=== PATIENT | female | born 1950 | race Caucasian/White ===

== ENCOUNTER → 2017-12-27 | Outpatient (CLI) | payer OTHER, MEDICARE ==
[~2017-12-27] MED LIST: ACYCLOVIR400 MG PO; ALBUTEROL SULFAT2 MG PO; ASPIR 8181 MG PO; ATORVASTATIN CA20 MG PO; CENTRUM SILVER1 EAC3 PO; CLARITIN-D 241 EACH PO; CRANBERRY475 MG PO; FIBER PO; FIBER500 MG PO; FLONASE16 GM NS; HUMALOG100 UNITS/ SQ; HYDROCHLOROTHIA25 MG PO; LANTUS100 UNITS/ SQ; LEVAQUIN250 MG PO; LEVEMIR100 UNIT/1 SQ; LOSARTAN POTASS50 MG PO; MELATONIN5 M2 PO; METFORMIN HCL1000 MG PO; METOPROLOL SUCC25 MG PO; NAPROXEN250 MG PO; OMEGA 3 FISH O1 EACH PO; TYLENOL WITH C1 EACH PO; VITAMIN B12-FO1 EACH PO; VITAMIN C500 M1 PO; VITAMIN D32000 UNI1 PO; VITAMIN E400 UNI1 PO; ZYRTEC10 MG PO
--- NOTE | 2017-12-27 09:41 | Diagnostic Imaging Report ---
PROCEDURE:US RETROPERITONEAL ( KIDNEY ). COMPARISON:Patients [facility], , US RETROPERITONEAL ( KIDNEY )., 06/07/2017, 15:15. INDICATIONS:Neoplasm of unspecified certainty. Followup nephrectomy. TECHNIQUE: Marquez scale color Doppler ultrasound kidneys FINDINGS: Right: 13.5 x 5.8 x 6.9 cm. Cortical thickness 1.8 cm. Normal kidney. Left: Nephrectomy with unremarkable renal fossa. Normal urinary bladder with patent left ureter. CONCLUSION: Normal right kidney and left nephrectomy bed. Dictated by: Naveed Felix M.D. on 12/27/2017 at 9:43 Electronically approved by: Naveed Felix M.D. on 12/27/2017 at 9:43
== END ==
LOC: US 07:33
PROVIDERS: ATTEND Urology
CPT/HCPCS: 76770

== ENCOUNTER → 2018-10-03 | Outpatient (CLI) | payer OTHER, MEDICARE ==
--- NOTE | 2018-10-03 10:04 | Diagnostic Imaging Report ---
EXAMINATION: Renal ultrasound. CLINICAL HISTORY :Abdominal pain COMPARISON: 04/18/2018 TECHNIQUE: Grayscale and color Doppler evaluation of the kidneys and bladder was performed in transverse and longitudinal planes. DISCUSSION: RIGHT KIDNEY: The right kidney measures 13 cm in length and shows normal echogenicity. No hydronephrosis, shadowing calculi or solid mass lesions. LEFT KIDNEY: Status post left nephrectomy 2016. No abnormal soft tissue in the left renal fossa. BLADDER: Unremarkable. Right ureteral jet is identified. IMPRESSION: Status post left nephrectomy with unremarkable left renal fossa. Normal appearing right kidney. Signed by: Dr. Eric Fried M.D. on 10/03/2018 10:00 AM
--- NOTE | 2018-10-03 10:10 | Diagnostic Imaging Report ---
EXAM: US ABDOMEN COMPLETE DATE: 10/03/2018 7:51 AM INDICATION: Abdominal pain, COMPARISON: Renal ultrasound same day TECHNIQUE: Transverse and longitudinal umanzor scale and color doppler sonographic images of the upper abdomen were obtained. FINDINGS: LIVER 17.9 cm in the right midclavicular line. Increased echogenicity, normal contour, no masses. SPLEEN 11 cm in maximum diameter. Normal echogenicity, no masses. GALLBLADDER Multiple small shadowing calculi and echogenic sludge are identified within the gallbladder. No wall thickening or pericholecystic fluid. Negative sonographic Gaitan's sign. BILE DUCTS No intra nor extra-hepatic biliary dilation. Common bile duct measures 0.3 cm PANCREAS: Visualized portions are normal. RIGHT KIDNEY: 13 cm Echogenicity: Normal Collecting System: No hydronephrosis Stones: None Cyst/Mass: None LEFT KIDNEY: Absent. VESSELS: Aorta: Nonaneurysmal Inferior Vena Cava: Patent Main Portal Vein: 1.0 cm, normal size with hepatopetal flow. FREE FLUID: None IMPRESSION: Hepatic steatosis. Cholelithiasis and gallbladder sludge without sonographic evidence of acute cholecystitis. Status post left nephrectomy. Signed by: Dr. Eric Fried M.D. on 10/03/2018 10:07 AM
== END ==
LOC: US 07:38
PROVIDERS: ATTEND Internal Medicine Gastroenterology
DX: N28.1 Cyst of kidney, acquired (principal); R10.9 Unspecified abdominal pain
CPT/HCPCS: 76700; 76770

== ENCOUNTER → 2018-10-21 | Day surgery (SDC) | payer OTHER, MEDICARE ==
[2018-10-18 11:36] LABS: BASOPHILS % 0.6 % (0.0-1.0); EOSINOPHILS # (AUTO) 0.3 (0.0-0.4); EOSINOPHILS % 3.9 % (0.0-6.0); HEMATOCRIT 40.9 % (34.2-44.1); LYMPHOCYTES # (AUTO) 1.9 (1.0-3.2); LYMPHOCYTES % 28.3 % (18.0-39.1); MEAN CORPUSCULAR HGB CONC 31.8 g/dL (31-35); MEAN CORPUSCULAR VOLUME 91.1 fL (81-99); MONOCYTES # (AUTO) 0.5 (0.2-0.8); MONOCYTES % 6.9 % (4.4-11.3); NEUTROPHILS % 59.8 % (38.7-80.0); PLATELET COUNT 156 x10e3/uL (140-360); RED BLOOD COUNT 4.49 x10e6/uL (3.6-5.1); RED CELL DISTRIBUTION WIDTH 14.7 % (11.7-14.4)
[~2018-10-21] MED LIST changes: +ACETAMINOPHEN PO; +ACYCLOVIR200 MG PO; +ALLEGRA ALLERG180 MG PO; +ANASTROZOLE1 MG PO; +AZELASTINE137 MCG/0.; +BASAGLAR SC; +CLONIDINE HCL0.2 MG PO; +DEXTROSE 5% 250ML 250 ML IV ONE; +EPHEDRINE SULFATE INJ 50 MG/10 ML SYR ONE; +FENTANYL CITRATE/PF 100MCG/2 ML INJ ONE; +FUROSEMIDE40 MG PO; +HYOSCYAMINE SULFATE 0.5 MG/ML INJ ONE; +LOSARTAN POTAS100 MG PO; +METOPROLOL SUCC50 MG PO; +MIDAZOLAM HCL 2 MG/2 ML VIAL ONE; +MIDAZOLAM HCL 5 MG/ML VIAL ONE; +MONTELUKAST SOD10 MG PO; +PROBIOTIC & AC1 EACH PO; +PROPOFOL IV EMULSION 10 MG/ML 50 ML VIAL ONE; +TRULICITY SC
--- NOTE | 2018-10-21 18:21 | Operative Report ---
DATE OF PROCEDURE: 10/21/2018 SURGEON: Josh Beavers MD PROCEDURES: EGD with biopsies and colonoscopy with polypectomy and biopsies. INDICATIONS FOR EGD: Dyspepsia. INDICATIONS FOR COLONOSCOPY: Surveillance colonoscopy, personal history of colon polyps. MEDICATIONS: The patient was done under MAC, please see anesthesiologist's note. PROCEDURE IN DETAIL: With the patient in the left lateral decubitus position, a flexible fiberoptic Olympus gastroscope was introduced into the esophagus under direct visualization without any difficulty. There was a minute nodule noted in the cervical esophagus that was removed per cold biopsy forceps. Mucosa overlying the distal esophagus revealed some patchy areas of erythema. GE junction was nodular and it was biopsied. The scope was then advanced with ease into the stomach traversing a small sliding hiatal hernia. Mucosa overlying the antrum and the body revealed some patchy erythema, low-grade to moderate edema, and biopsies were obtained and sent to stain for H pylori. Pylorus was of normal contour and shape. It was intubated with ease and the scope was advanced all the way to the second portion of the duodenum. Some erosions were noted in the proximal second portion. Biopsies were obtained from the proximal second portion as well as the duodenal bulb to rule out sprue. The scope was then withdrawn back into the stomach and retroflexed. Mucosa overlying the fundus and the cardia appeared to be within normal limits. The scope was then straightened out. The stomach was decompressed and the scope was subsequently withdrawn. The patient tolerated the procedure well. IMPRESSION: 1. Minute nodule in the cervical esophagus removed per cold biopsy forceps. 2. Distal esophagitis, mild. 3. GE junction, nodular, biopsies obtained. 4. Small sliding hiatal hernia. 5. Gastritis, biopsied. Biopsies sent to stain for Helicobacter pylori. 6. Rule out sprue. 7. Duodenitis, erosive. PLAN: Follow up histology. Initiate Protonix 40 mg one p.o. q.a.m. a.c. The patient was then turned around and after adequate lubrication of the anal canal, a flexible fiberoptic Olympus colonoscope was inserted into the rectum with ease and advanced all the way to the cecum. It was then withdrawn slowly. Mucosa overlying the cecum, ascending colon, transverse colon grossly appeared to be within normal limits. Diverticular disease was noted to involve the distal descending and the sigmoid colon. One polyp was hot biopsied from the proximal sigmoid. Approximately 8 mm submucosal lesion was noted in the distal sigmoid colon ? lipoma. Biopsies were obtained. A minute polyp was hot biopsied from the proximal rectum. The scope was then retroflexed into the distal rectum and moderate-sized internal hemorrhoids were noted, none of which was actively bleeding. The scope was then straightened out, it was subsequently withdrawn. The patient tolerated the procedure well. IMPRESSION: 1. Diverticulosis. 2. Sigmoid colon and polyp, hot biopsied. 3. Approximately 8 mm submucosal lesion ? lipoma distal sigmoid, biopsied. 4. Rectal polyp, minute, hot biopsied. 5. Internal hemorrhoids, none actively bleeding. PLAN: Follow up histology. Initiate high-fiber, low-fat diet. Initiate high-fiber supplement. The patient might benefit from a followup colonoscopy in 3-5 years. MD CAROLANN Ibrahim/SAPNA /[id number] cc: Ye Donnelly MD
--- OUTSIDE RECORDS SUMMARY | 2018-10-23 11:56 | XMS REPORT | Clinical Summary ---
Author Author [facility] Organization [facility] Address Unknown Phone Unavailable Care Team Providers Care Aerospace Assembler Name Role Phone Ye Donnelly MD PCP Allergies Comments Active Allergy Reactions Severity Noted Date Hallucinations,gi,hives Pentazocine Lactate Other (See 03/29/2018 Comments) Medications End Date Status Medication Sig Dispensed Refills Start Date Active albuterol (PROVENTIL) 4 4 mg 2 (two) 0 01/02/201 MG tablet times a day. 8 Active amLODIPine (NORVASC) 10 10 mg daily. 0 01/13/ mg tablet 8 Active atorvastatin (LIPITOR) 20 Take 20 mg by 0 01/17/ MG tablet mouth 8 nightly. Active azelastine (ASTELIN) 137 1 spray into 0 mcg (0.1 %) nasal spray each nostril 8 2 (two) times a day. Active TRULICITY 1.5 mg/0.5 mL Inject under 0 pen injector the skin once 8 a week. Active furosemide (LASIX) 40 mg Take 40 mg by 0 tablet mouth daily. 8 Active BASAGLAR KWIKPEN U-100 50 Units 2 0 INSULIN 100 unit/mL (3 (two) times a 8 mL) injection (pen) day. Active losartan (COZAAR) 100 MG Take 100 mg 0 tablet by mouth 8 nightly. Active metoprolol tartrate Take 50 mg by 0 (LOPRESSOR) 50 mg tablet mouth 2 (two) 8 times a day. Active montelukast (SINGULAIR) Take 10 mg by 0 10 mg tablet mouth 8 nightly. Active cetirizine (ZyrTEC) 10 MG Take 10 mg by 0 tablet mouth nightly. Active ascorbic acid, vitamin C, Take 500 mg 0 (VITAMIN C) 500 MG tablet by mouth daily. Active vit B complex Take by 0 no.12/niacin,B3, (VITAMIN mouth. B COMPLEX NO.12-NIACIN ORAL) Active omega-3 acid ethyl esters Take 1 g by 0 (LOVAZA) 1 gram capsule mouth 2 (two) times a day. Active wtjl-kqe-wcy-kjj-dkoo-ywl Take 500 mg 0 p-pec (FIBER 6) 1,000 mg by mouth 2 tablet (two) times a day. Active Saccharomyces boulardii Take 250 mg 0 (FLORASTOR) 250 mg by mouth 2 capsule (two) times a day. Active acetaminophen (TYLENOL) Take 1,000 mg 0 500 MG tablet by mouth every 6 (six) hours as needed for mild pain. Active fexofenadine (CHANTELLE) Take 180 mg 0 180 MG tablet by mouth daily. Active acyclovir (ZOVIRAX) 400 Take 400 mg 0 MG tablet by mouth 2 (two) times a day. 04/05/2018 Discontinued aspirin (ECOTRIN) 81 MG Take 81 mg by 0 enteric coated tablet mouth daily. Active Problems Not on file Encounters Care Team Description Date Type Specialty Tal Goodman MD 04/05/2018 Anesthesia General Surgery Event Laura Huang MD RIGHT NEEDLE LOCALIZED BEAST LUMPECTOMY WITH ONCOPLASTIC CLOSURE, MULTIPLE INTERCOASTAL BLOCKS, RIGHT AXILLARY SENTINEL LYMPH NODE BIOPSY WITH INJECTION OF METHYLENE BLUE, 04/05/2018 Surgery General Surgery Laura Huang MD Preop testing 04/05/2018 Hospital General Surgery Encounter Laura Huang MD Malignant neoplasm of central portion of right female breast, unspecified estrogen receptor status 04/05/2018 Hospital Radiology Encounter Laura Huang MD Malignant neoplasm of central portion of right female breast, unspecified estrogen receptor status 04/05/2018 Hospital Radiology Encounter Laura Huang MD Preop testing (Primary Dx) 03/29/2018 Pre-Admit Pre-Admission Testing Testing Appointment Laura Huang MD 03/29/2018 Hospital Radiology Encounter Laura Huang MD Malignant neoplasm of central portion of right female breast, unspecified estrogen receptor status (Primary Dx) 03/22/2018 Transcribe Access Orders Laura Huang MD 03/17/2018 Hospital Radiology Encounter Laura Huang MD 03/17/2018 Hospital Radiology Encounter Laura Huang MD 03/17/2018 Hospital Radiology Encounter Laura Huang MD 03/17/2018 Hospital Radiology Encounter Laura Huang MD 03/17/2018 Hospital Radiology Encounter Laura Huang MD 03/17/2018 Hospital Radiology Encounter Laura Huang MD 03/17/2018 Hospital Radiology Encounter Laura Huang MD 03/17/2018 Hospital Radiology Encounter after 10/22/2017 Family History Medical History Relation Name Comments Kidney failure Brother Diabetes Father Leukemia Mother Relation Name Status Comments Brother Father Mother Social History Date Tobacco Use Types Packs/Day Years Used Never Smoker Smokeless Tobacco: Never Used Alcohol Use Drinks/Week oz/Week Comments No Sex Assigned at Date Recorded Not on file Industry Job Start Date Occupation Not on file Not on file Not on file Travel End Travel History Travel Start No recent travel history available. Last Filed Vital Signs Time Taken Vital Sign Reading 04/05/2018 3:12 PM CDT Blood Pressure 147/68 04/05/2018 3:12 PM CDT Pulse 69 04/05/2018 2:55 PM CDT Temperature 36.5 C (97.7 F) 04/05/2018 3:12 PM CDT Respiratory Rate 16 04/05/2018 3:12 PM CDT Oxygen Saturation 95% - Inhaled Oxygen - Concentration 04/05/2018 7:59 AM CDT Weight 121 kg (267 lb 2 oz) 04/05/2018 7:59 AM CDT Height 165.1 cm (5' 5") 04/05/2018 7:59 AM CDT Body Mass Index 44.45 Plan of Treatment Health Maintenance Due Date Last Done Comments COLON CANCER SCREENING 2001 SHINGLES VACCINES (#1) 2001 65+ PNEUMOCOCCAL VACCINE 2016 (1 of 2 - PCV13) PNEUMOCOCCAL 2016 POLYSACCHARIDE VACCINE AGE 65 AND OVER INFLUENZA VACCINE 03/08/2018 BREAST CANCER SCREENING 04/05/2020 04/05/2018 Procedures Comments Procedure Name Priority Date/Time Associated Diagnosis BREAST SPECIMEN Routine 04/05/2018 12:38 PM CDT SURGICAL PATHOLOGY Routine 04/05/2018 REQUEST 12:27 PM CDT OR AN ELECTIVE Routine 04/05/2018 SUPRAGLOTTIC AIRWAY 12:01 PM CDT Procedure Note - Tal Goodman MD - 04/05/2018 12:01 PM CDT Airway Performed by: TAL GOODMAN Authorized by: TAL GOODMAN Urgency: Elective Difficult Airway: No Anesthesio logist: TAL GOODMAN Preoxygena stone with 100% O2: Yes C-spine Precaution s Maintained Throughout : Yes Mask Ventilatio n: Not attempted Final Airway Type: Supraglott ic airway Final LMA: Unique LMA Size: 4 BIOPSY, BREAST, WITH 04/05/2018 C50.111 MALIGNANT NEEDLE LOCALIZATION 11:05 AM CDT NEOPLASM OF CENTRAL PORTION OF RIGHT FEMALE BREAST NM LYMPHOSCINTIGRAPHY Routine 04/05/2018 Malignant neoplasm of 9:49 AM CDT central portion of right female breast, unspecified estrogen receptor status MAMMO DIAGNOSTIC W CAD Routine 04/05/2018 RIGHT 9:08 AM CDT US BREAST LOCALIZATION Routine 04/05/2018 Malignant neoplasm of RIGHT 9:04 AM CDT central portion of right female breast, unspecified estrogen receptor status POC GLUCOSE Routine 04/05/2018 8:09 AM CDT XR CHEST 2 VW Routine 03/29/2018 Preop testing 3:37 PM CDT ZZESTIMATED GFR Routine 03/29/2018 2:50 PM CDT COMPREHENSIVE METABOLIC Routine 03/29/2018 Preop testing PANEL 2:50 PM CDT CBC HEMOGRAM Routine 03/29/2018 Preop testing 2:50 PM CDT ECG 12-LEAD Routine 03/29/2018 Preop testing 2:49 PM CDT MAMMO EXTERNAL STUDY Routine 02/28/2018 11:32 AM CDT US BREAST EXTERNAL STUDY Routine 02/28/2018 11:31 AM CDT US BREAST EXTERNAL STUDY Routine 02/21/2018 11:31 AM CDT MAMMO EXTERNAL STUDY Routine 02/21/2018 11:31 AM CDT after 10/22/2017 Results * Breast Specimen (04/05/2018 12:38 PM CDT) Narrative Performed At EXAMINATION:BREAST SPECIMEN [facility] INDICATION: 67-year-old woman with biopsy-proven right breast invasive ductal carcinoma status post needle localization prior to surgery. Intraoperative specimen radiographs were submitted for review. IMPRESSION: The localization wire and biopsy clip are within the submitted specimen. Results were discussed with Dr. Ashlee Donnelly in the OR at 12:50 PM on 04/05/[address] Delgado. [id number] Performing Organization Address City/[facility] Phone Number [facility] [address] [place] [address] * Surgical pathology request (04/05/2018 12:27 PM CDT) [facility] DEPARTMENT OF PATHOLOGY AND GENOMIC MEDICINE Surgical pathology report See link below for PDF Lab [facility] DEPARTMENT OF Report PATHOLOGY AND GENOMIC MEDICINE Result status This is Final Report for [facility] DEPARTMENT OF [id number] PATHOLOGY AND GENOMIC MEDICINE Performing Organization Address [facility] Phone Number [facility] [address] [place] [phone] PATHOLOGY AND GENOMIC MEDICINE * NM Lymphoscintigraphy (04/05/2018 9:49 AM CDT) Narrative Performed At EXAMINATION:NM LYMPHOSCINTIGRAPHY [facility] CLINICAL HISTORY:C50.111 Malignant neoplasm of central portion of right female breast, C50.111 COMPARISON:None. TECHNIQUE: The examination was discussed with the patient. Written informed consent was obtained. All elements of maximal sterile barrier technique were utilized. A formal timeout procedure was performed prior to beginning the study. 728 uCi technetium 99m filtered sulfur colloid injected intradermally about the right circumareolar breast following injection of 1% buffered lidocaine. IMPRESSION: Uncomplicated right breast sentinel node injection [id number] Procedure Note Interface, Radiology Results Incoming - 04/05/2018 9:55 AM CDT EXAMINATION: NM LYMPHOSCINTIGRAPHY CLINICAL HISTORY: C50.111 Malignant neoplasm of central portion of right female breast, C50.111 COMPARISON: None. TECHNIQUE: The examination was discussed with the patient. Written informed consent was obtained. All elements of maximal sterile barrier technique were utilized. A formal timeout procedure was performed prior to beginning the study. 728 uCi technetium 99m filtered sulfur colloid injected intradermally about the right circumareolar breast following injection of 1% buffered lidocaine. IMPRESSION: Uncomplicated right breast sentinel node injection [id number] Performing Organization Address City/State/Zipcode Phone Number [facility] [address] [place] [address] * Mammo Diagnostic w Cad Right (04/05/2018 9:08 AM CDT) Narrative Performed At ULTRASOUND GUIDED NEEDLE LOCALIZATION RIGHT BREAST WITH POST DIGITAL [facility] MAMMOGRAPHIC IMAGING: CLINICAL: 67-year-old woman with biopsy-proven right breast invasive ductal carcinoma, for which needle localization prior to surgery is planned. Comparison: Outside mammogram, ultrasound and ultrasound-guided biopsy images dated 02/28/2018-12/13/2014 PATIENT CONSENT: Informed consent was obtained from the patient after discussion of risks, benefits, and alternatives; consent placed in chart. A "time out" was performed prior to procedure. Review of outside post biopsy mammographic images demonstrates 5 mm posterior displacement of the biopsy clip to the targeted biopsy site. For this reason, needle localization prior to surgery was planned under ultrasound guidance. A needle localization using ultrasound guidance was performed for the 1.2 cm irregular hypoechoic mass at the right breast 9:00 location 8 cm from the nipple, the known cancer. This was described on the previous ultrasound reports. The skin was prepped in the usual manner. Local anesthetic was administered to the access site. The localization was approached from the lateral aspect. A 5 cm Q- localization needle was inserted into the targeted area under ultrasound guidance. Post placement digital mammographic imaging demonstrates the reinforced segment of the Q-wire to be within the targeted abnormality and the biopsy clip noted approximately 5 mm posterior to the localization wire and abnormality. RightCC and LM views with annotations were sent with the patient to the operating room without any immediate complications. IMPRESSION: NEEDLE LOCALIZATION Needle localization for the 1.2 cm mass, the known cancer, at the right breast 9:00 location 8 cm from the nipple was successful with no apparent post procedure complications. Surgery is scheduled to follow on the same day. Performing Organization Address City/State/Zipcode Phone Number [facility] [address] [place] [address] * US Breast Localization Right (04/05/2018 9:04 AM CDT) Narrative Performed At ULTRASOUND GUIDED NEEDLE LOCALIZATION RIGHT BREAST WITH POST DIGITAL [facility] MAMMOGRAPHIC IMAGING: CLINICAL: 67-year-old woman with biopsy-proven right breast invasive ductal carcinoma, for which needle localization prior to surgery is planned. Comparison: Outside mammogram, ultrasound and ultrasound-guided biopsy images dated 02/28/2018-12/13/2014 PATIENT CONSENT: Informed consent was obtained from the patient after discussion of risks, benefits, and alternatives; consent placed in chart. A "time out" was performed prior to procedure. Review of outside post biopsy mammographic images demonstrates 5 mm posterior displacement of the biopsy clip to the targeted biopsy site. For this reason, needle localization prior to surgery was planned under ultrasound guidance. A needle localization using ultrasound guidance was performed for the 1.2 cm irregular hypoechoic mass at the right breast 9:00 location 8 cm from the nipple, the known cancer. This was described on the previous ultrasound reports. The skin was prepped in the usual manner. Local anesthetic was administered to the access site. The localization was approached from the lateral aspect. A 5 cm Q- localization needle was inserted into the targeted area under ultrasound guidance. Post placement digital mammographic imaging demonstrates the reinforced segment of the Q-wire to be within the targeted abnormality and the biopsy clip noted approximately 5 mm posterior to the localization wire and abnormality. RightCC and LM views with annotations were sent with the patient to the operating room without any immediate complications. IMPRESSION: NEEDLE LOCALIZATION Needle localization for the 1.2 cm mass, the known cancer, at the right breast 9:00 location 8 cm from the nipple was successful with no apparent post procedure complications. Surgery is scheduled to follow on the same day. Procedure Note Interface, Radiology Results Incoming - 04/05/2018 9:37 AM CDT ULTRASOUND GUIDED NEEDLE LOCALIZATION RIGHT BREAST WITH POST DIGITAL MAMMOGRAPHIC IMAGING: CLINICAL: 67-year-old woman with biopsy-proven right breast invasive ductal carcinoma, for which needle localization prior to surgery is planned. Comparison: Outside mammogram, ultrasound and ultrasound-guided biopsy images dated 02/28/2018-12/13/2014 PATIENT CONSENT: Informed consent was obtained from the patient after discussion of risks, benefits, and alternatives; consent placed in chart. A "time out" was performed prior to procedure. Review of outside post biopsy mammographic images demonstrates 5 mm posterior displacement of the biopsy clip to the targeted biopsy site. For this reason, needle localization prior to surgery was planned under ultrasound guidance. A needle localization using ultrasound guidance was performed for the 1.2 cm irregular hypoechoic mass at the right breast 9:00 location 8 cm from the nipple, the known cancer. This was described on the previous ultrasound reports. The skin was prepped in the usual manner. Local anesthetic was administered to the access site. The localization was approached from the lateral aspect. A 5 cm Q- localization needle was inserted into the targeted area under ultrasound guidance. Post placement digital mammographic imaging demonstrates the reinforced segment of the Q-wire to be within the targeted abnormality and the biopsy clip noted approximately 5 mm posterior to the localization wire and abnormality. RightCC and LM views with annotations were sent with the patient to the operating room without any immediate complications. IMPRESSION: NEEDLE LOCALIZATION Needle localization for the 1.2 cm mass, the known cancer, at the right breast 9:00 location 8 cm from the nipple was successful with no apparent post procedure complications. Surgery is scheduled to follow on the same day. Performing Organization Address City/[facility] Phone Number [employer] [address] [place] [address] * POC glucose (04/05/2018 8:09 AM CDT) POC glucose 135 (H) 65 - 99 mg/dL [facility] DEPARTMENT OF Comment: PATHOLOGY AND Meter ID: [id number] GENOMIC MEDICINE Teaseler: Jeffrey Begum Performing Organization Address City/[facility]/Zipcode Phone Number [address] [place] [phone] PATHOLOGY AND GENOMIC MEDICINE * XR Chest 2 Vw (03/29/2018 3:37 PM CDT) Narrative Performed At EXAMINATION:XR CHEST 2 VW [employer] CLINICAL HISTORY:Z01.818 Encounter for other preprocedural examination, preop COMPARISON:. Findings: The heart size appears normal. The mediastinum is unremarkable. The lungs are clear. IMPRESSION: There are no acute cardiopulmonary abnormalities identified [id number] Procedure Note Interface, Radiology Results Incoming - 03/29/2018 3:43 PM CDT EXAMINATION: XR CHEST 2 VW CLINICAL HISTORY: Z01.818 Encounter for other preprocedural examination, preop COMPARISON: . Findings: The heart size appears normal. The mediastinum is unremarkable. The lungs are clear. IMPRESSION: There are no acute cardiopulmonary abnormalities identified [id number] Performing Organization Address City/[facility]/Zipcode Phone Number [facility] [address] [place] [address] * Estimated GFR (03/29/2018 2:50 PM CDT) GFR Non Af Amer 24 (A) mL/min/1.73 m2 [facility] DEPARTMENT OF PATHOLOGY AND GENOMIC MEDICINE GFR Af Amer 29 (A) mL/min/1.73 m2 [facility] DEPARTMENT OF Comment: PATHOLOGY AND Chronic kidney disease: <60 GENOMIC MEDICINE mL/min/1.73m2 Kidney failure: <15 mL/min/1.73m2 The estimated GFR is calculated from the IDMS-traceable Modification of Diet in Renal Disease Equation. The accuracy of the calculation is poor when the creatinine is normal. Calculated values >90 mL/min/1.73m2 are not reported. This equation has not been validated in children (<18 years), women, the elderly (>70 years), or ethnic groups other than Caucasians and Americans. Specimen Plasma specimen Performing Organization Address City/[facility] Phone Number [address] [place] [address] PATHOLOGY AND GENOMIC MEDICINE * CBC hemogram (03/29/2018 2:50 PM CDT) WBC 8.74 4.50 - 11.00 k/uL [facility] DEPARTMENT OF PATHOLOGY AND GENOMIC MEDICINE RBC 4.52 4.20 - 5.50 m/uL [facility] DEPARTMENT OF PATHOLOGY AND GENOMIC MEDICINE HGB 12.7 12.0 - 16.0 g/dL [facility] DEPARTMENT OF PATHOLOGY AND GENOMIC MEDICINE HCT 39.5 37.0 - 47.0 % [facility] DEPARTMENT OF PATHOLOGY AND GENOMIC MEDICINE MCV 87.4 82.0 - 100.0 fL [facility] DEPARTMENT OF PATHOLOGY AND GENOMIC MEDICINE MCH 28.1 27.0 - 34.0 pg [facility] DEPARTMENT OF PATHOLOGY AND GENOMIC MEDICINE MCHC 32.2 31.0 - 37.0 g/dL [facility] DEPARTMENT OF PATHOLOGY AND GENOMIC MEDICINE RDW - SD 42.8 37.0 - 55.0 fL [facility] DEPARTMENT OF PATHOLOGY AND GENOMIC MEDICINE MPV 12.1 8.8 - 13.2 fL [facility] DEPARTMENT OF PATHOLOGY AND GENOMIC MEDICINE Platelet count 181 150 - 400 k/uL [facility] DEPARTMENT OF PATHOLOGY AND GENOMIC MEDICINE Nucleated RBC 0.00 /100 WBC [facility] DEPARTMENT OF PATHOLOGY AND GENOMIC MEDICINE Specimen Blood Performing Organization Address City/State/Zipcode Phone Number [facility] [address] [address] PATHOLOGY AND GENOMIC MEDICINE * Comprehensive metabolic panel (03/29/2018 2:50 PM CDT) Sodium 143 135 - 148 mEq/L [facility] DEPARTMENT OF PATHOLOGY AND GENOMIC MEDICINE Potassium 4.1 3.5 - 5.0 mEq/L [facility] DEPARTMENT OF PATHOLOGY AND GENOMIC MEDICINE Chloride 104 98 - 112 mEq/L [facility] DEPARTMENT OF PATHOLOGY AND GENOMIC MEDICINE CO2 26 24 - 31 mEq/L [facility] DEPARTMENT OF PATHOLOGY AND GENOMIC MEDICINE Anion gap 13@ANIO 7 - 15 mEq/L [facility] DEPARTMENT OF PATHOLOGY AND GENOMIC MEDICINE BUN 32 (H) 8 - 23 mg/dL [facility] DEPARTMENT OF PATHOLOGY AND GENOMIC MEDICINE Creatinine 2.1 (H) 0.5 - 0.9 mg/dL [facility] DEPARTMENT OF PATHOLOGY AND GENOMIC MEDICINE Glucose 134 (H) 65 - 99 mg/dL [facility] DEPARTMENT OF PATHOLOGY AND GENOMIC MEDICINE Calcium 10.3 (H) 8.8 - 10.2 mg/dL [facility] DEPARTMENT OF PATHOLOGY AND GENOMIC MEDICINE Protein 7.8 6.3 - 8.3 g/dL [facility] DEPARTMENT OF Comment: PATHOLOGY AND [place] GENOMIC MEDICINE 4.6-7.0 g/dL 1 week 4.4-7.6 g/dL 7 months-1year 5.1-7.3 g/dL 1-2 years5.6-7 .5 g/dL >3 years6.0-8 .0 g/dL 18-150 6.3-8.3 g/dL Albumin 4.7 3.5 - 5.0 g/dL [facility] DEPARTMENT OF PATHOLOGY AND GENOMIC MEDICINE A/G ratio 1.5 0.7 - 3.8 [facility] DEPARTMENT OF PATHOLOGY AND GENOMIC MEDICINE Alkaline phosphatase 94 35 - 104 U/L [facility] DEPARTMENT OF PATHOLOGY AND GENOMIC MEDICINE AST 19 10 - 35 U/L [facility] DEPARTMENT OF PATHOLOGY AND GENOMIC MEDICINE ALT 24 5 - 50 U/L [facility] DEPARTMENT OF PATHOLOGY AND GENOMIC MEDICINE Total bilirubin 0.3 0.0 - 1.2 mg/dL [facility] DEPARTMENT OF PATHOLOGY AND GENOMIC MEDICINE Specimen Plasma specimen Performing Organization Address City/State/Zipcode Phone Number [address] [place] [address] PATHOLOGY AND GENOMIC MEDICINE * ECG 12 lead (03/29/2018 2:49 PM CDT) Ventricular rate 74 [facility] Atrial rate 74 [facility] OR interval 154 [facility] QRSD interval 86 [facility] QT interval 402 [facility] QTC interval 446 [facility] P axis 1 65 [facility] QRS axis 1 -1 [facility] T wave axis 88 [facility] MUSE EKG impression Normal sinus rhythm-Normal [facility] MUSE ECG-No previous ECGs available- Performing Organization Address City/State/Zipcode Phone Number [facility] [address] [place] [address] * Mammo External Study (02/28/2018 11:32 AM CDT) Only the most recent of 2 results within the time period is included. Narrative Performed At This exam was not acquired at a [facility] facility and has not been [facility] interpreted by a [facility] Provider.The exam was imported into our imaging system for comparisons purposes. Performing Organization Address City/[facility]/Zipcode Phone Number [facility] [address] [place] [address] * US Breast External Study (02/28/2018 11:31 AM CDT) Only the most recent of 2 results within the time period is included. Narrative Performed At This exam was not acquired at a [facility] facility and has not been [facility] interpreted by a [facility] Provider.The exam was imported into our imaging system for comparisons purposes. Performing Organization Address City/State/Zipcode Phone Number [facility] [address] [place] [address] after 10/22/2017 Insurance Payer Benefit Subscriber ID Type Phone Address Plan / Group [employer] xxxxxxxxx HMO/PPO THCARE CHOICE/CHO ICE + AARP AARP xxxxxxxxx-xx Commercial SUPPLEMENT Advance Directives Patient has advance care planning documents on file. For more information, slava e contact: Mani Chance [address] [place] [address]
--- OUTSIDE RECORDS SUMMARY | 2018-10-23 11:56 | XMS REPORT ---
Author [facility] Address Unknown Phone Unavailable Care Team Providers Care Conical Mixer Name Role Phone ARTIS BEST Unavailable Unavailable ARNULFO MARCUS Unavailable Unavailable Payers Payer Name Policy Type Policy Number Effective Date Expiration Date Problems This patient has no known problems. Allergies, Adverse Reactions, Alerts Allergy Name Allergy Type Status Severity Reaction(s) Onset Date Inactive Date Treating Clinician Comments Pentazocine Lactate DA Active SV 2012-04-22 00:00:00 Medications This patient has no known medications. Results Test Description Test Time Test Comments Text Results Atomic Results Result Comments US ABDOMEN COMPLETE 2018-10-03 10:04:00 [place] [address] Patient Name: ERIK RENEE MR #: [id number] : 1950 Age/Sex: 68/F Req #: [id number] Adm Physician: Ordered by: ARTIS BEST MD Report #: [id number] Location: US Room/Bed: Procedure: [id number] US/US ABDOMEN COMPLETE Exam Date: 10/03/18 Exam Time: 826 REPORT STATUS: Signed EXAM: US ABDOMEN COMPLETE DATE: 10/03/2018 7:51 AM INDICATION: Abdominal pain, COMPARISON: Renal ultrasound same day TECHNIQUE: Transverse and longitudinal marquez scale and color doppler sonographic images of the upper abdomen were obtained. FINDINGS: LIVER 17.9 cm in the right midclavicular line. Increased echogenicity, normal contour, no masses. SPLEEN 11 cm in maximum diameter. Normal echogenicity, no masses. GALLBLADDER Multiple small shadowing calculi and echogenic sludge are identified within the gallbladder. No wall thickening or pericholecystic fluid. Negative sonographic Gaitan's sign. BILE DUCTS No intra nor extra-hepatic biliary dilation. Common bile duct measures 0.3 cm PANCREAS: Visualized portions are normal. RIGHT KIDNEY: 13 cm Echogenicity: Normal Collecting System: No hydronephrosis Stones: None Cyst/Mass: None LEFT KIDNEY: Absent. VESSELS: Aorta: Nonaneurysmal Inferior Vena Cava: Patent Main Portal Vein: 1.0 cm, normal size with hepatopetal flow. FREE FLUID: None IMPRESSION: Hepatic steatosis. Cholelithiasis and gallbladder sludge without sonographic evidence of acute cholecystitis. Status post left nephrectomy. Signed by: Dr. Nova Glasgow M.D. on 10/03/2018 10:07 AM Dictated By: NOVA GLASGOW MD 1007 Transcribed By: VANESSA on 10/03/18 1007 COPY TO: ARTIS BEST MD RENAL RETROPERITONEAL COMP 2018-10-03 09:58:00 [place] [address] Patient Name: ERIK RENEE MR #: [id number] : 1950 Age/Sex: 68/F Req #: [id number] Adm Physician: Ordered by: ARNULFO MARCUS MD Report #: [id number] Location: Room/Bed: Procedure: US/US RENAL RETROPERITONEAL COMP Exam Date: Exam Time: REPORT STATUS: Signed EXAMINATION: Renal ultrasound. CLINICAL HISTORY :Ab dominal pain COMPARISON: 04/18/2018 TECHNIQUE: Grayscale and color Doppler evaluation of the kidneys and bladder was performed in transverse and longitudinal planes. DISCUSSION: RIGHT KIDNEY: The right kidney measures 13 cm in length and shows normal echogenicity. No hydronephrosis, shadowing calculi or solid mass lesions. LEFT KIDNEY: Status post left nephrectomy 2016. No abnormal soft tissue in the left renal fossa. BLADDER: Unremarkable. Right ureteral jet is identified. IMPRESSION: Status post left nephrectomy with unremarkable left renal fossa. Normal appearing right kidney. Signed by: Dr. Nova Glasgow M.D. on 10/03/2018 10:00 AM Dictated By: NOVA GLASGOW MD 1000 Transcribed By: VANESSA on 10/03/18 1000 COPY TO: ARNULFO MARCUS MD RENAL RETROPERITONEAL COMP 2018-04-18 08:46:00 [place] [address] Patient Name: ERIK RENEE MR #: [id number] : 1950 Age/Sex: 67/F Req #: [id number] Adm Physician: Ordered by: ARNULFO MARCUS MD Report #: [id number] Location: US Room/Bed: Procedure: US/US RENAL RETROPERITONEAL COMP Exam Date: Exam Time: REPORT STATUS: Signed PROCEDURE: US RETROPERITONEAL ( KIDNEY ). COMPARISON: Renal ultrasound 12/27/17. INDICATIONS: MALIGNANT NEOPLASM OF UNSPECIFIED KIDNEY TECHNIQUE: Hansen-scale and color sonographic images of the bilateral kidneys and bladder where obtained in transverse and longitudinal planes. FINDINGS: RIGHT KIDNEY: 13.7 cm, cortex 1.8 cm. Unremarkable appearance without evidence of hydronephrosis, mass, or stone. LEFT KIDNEY: Status post left nephrectomy. Bladder: Unremarkable. Right ureteral jet is visualized. Incidental finding of increased echogenicity of the liver. CONCLUSION: Normal right kidney. Status post left nephrectomy. Incidental hepatic steatosis. Dictated by: EARLE ZAVALA M.D. on 04/18/2018 at 8:46 Electronically approved by: EARLE ZAVALA M.D. on 04/18/2018 at 8:46 Dictated By: EARLE ZAVALA MD 5 Transcribed By: TAMIKO on 04/18/18845 COPY TO: ARNULFO MARCUS MD US RENAL RETROPERITONEAL COMP [place] [address] Patient Name: ERIK RENEE MR #: [id number] : 1950 Age/Sex: 67/F Req #: [id number] Adm Physician: Ordered by: ARNULFO MARCUS MD Report #: [id number] Location: Room/Bed: Procedure: [id number] US/US RENAL RETROPERITONEAL COMP Exam Date: 12/27/17 Exam Time: 0755 REPORT STATUS: Signed PROCEDURE: US RETROPERITONEAL ( KIDNEY ). COMPARISON: [facility], , US RETROPERITONEAL ( KIDNEY )., 06/07/2017, 15:15. INDICATIONS: Neoplasm of unspecified certainty. Followup nephrectomy. TECHNIQUE: Marquez scale color Doppler ultrasound kidneys FINDINGS: Right: 13.5 x 5.8 x 6.9 cm. Cortical thickness 1.8 cm. Normal kidney. Left: Nephrectomy with unremarkable renal fossa. Normal urinary bladder with patent left ureter. CONCLUSION: Normal right kidney and left nephrectomy bed. Dictated by: Kristin Felix M.D. on 12/27/2017 at 9:43 Electronically approved by: Kristin Felix M.D. on 12/27/2017 at 9:43 Dictated By: KRISTIN FELIX MD 2 Transcribed By: TAMIKO on 12/27/17942 COPY TO: ARNULFO MARCUS MD US RENAL RETROPERITONEAL COMP [place] [address] Patient Name: ERIK RENEE MR #: [id number] : 1950 Age/Sex: 66/F Req #: [id number] Adm Physician: Ordered by: ARNULFO MARCUS MD Report #: [id number] Location: US Room/Bed: Procedure: [id number] US/US RENAL RETROPERITONEAL COMP Exam Date: 06/07/17 Exam Time: 1515 REPORT STATUS: Signed PROCEDURE: US RETROPERITONEAL ( KIDNEY ). COMPARISON: Renal ultrasound dated 02/17/17 INDICATIONS: Malignant neoplasm of kidney TECHNIQUE: Hansen-scale and color sonographic images of the bilateral kidneys and bladder where obtained in transverse and longitudinal planes. FINDINGS: RIGHT KIDNEY: 13.5 cm, cortex 1.7 cm Cysts: 1.2 x 1.1 x 1.2 cm inferior pole cyst. Solid masses: None. Stones: None. Hydronephrosis: None. Echogenicity: Normal LEFT KIDNEY: Surgically absent. Bladder: Unremarkable. CONCLUSION: Unremarkable right kidney. Status post left nephrectomy. Dictated by: Sav Leach M.D. on 06/07/2017 at 16:02 Electronically approved by: Sav Leach M.D. on 06/07/2017 at 16:02 Dictated By: SAV LEACH MD Elec tronically Signed By: SAV LEACH MD on 06/07/17 1602 Transcribed By: TAMIKO on 06/07/17 1602 COPY TO: ARNULFO MARCUS MD
== END | disposition home or self-care (01) ==
LOC: OR 06:00
PROVIDERS: ATTEND Internal Medicine Gastroenterology
DX: K29.70 Gastritis, unspecified, without bleeding (principal); K63.5 Polyp of colon; K62.1 Rectal polyp; K63.9 Disease of intestine, unspecified; K29.80 Duodenitis without bleeding; K44.9 Diaphragmatic hernia without obstruction or gangrene; K22.8 Other specified diseases of esophagus; K20.9 Esophagitis, unspecified; K57.30 Diverticulosis of large intestine without perforation or abscess without bleeding; K64.8 Other hemorrhoids; J45.909 Unspecified asthma, uncomplicated; E11.9 Type 2 diabetes mellitus without complications; I10 Essential (primary) hypertension; E78.5 Hyperlipidemia, unspecified; Z88.6 Allergy status to analgesic agent; Z01.810 Encounter for preprocedural cardiovascular examination; Z90.5 Acquired absence of kidney
CPT/HCPCS: 36415 ×2; 43239; 45380; 45384; 82948; 85025; 93005; J1980; J2250 ×2; J2704; J7070; 43235; 45378

== ENCOUNTER → 2019-01-10 | Outpatient (CLI) | payer OTHER, MEDICARE ==
[~2019-01-10] MED LIST changes: -DEXTROSE 5% 250ML 250 ML IV ONE; -EPHEDRINE SULFATE INJ 50 MG/10 ML SYR ONE; -FENTANYL CITRATE/PF 100MCG/2 ML INJ ONE; -HYOSCYAMINE SULFATE 0.5 MG/ML INJ ONE; -MIDAZOLAM HCL 2 MG/2 ML VIAL ONE; -MIDAZOLAM HCL 5 MG/ML VIAL ONE; -PROPOFOL IV EMULSION 10 MG/ML 50 ML VIAL ONE
--- NOTE | 2019-01-11 05:26 | Diagnostic Imaging Report ---
Parathyroid Scan with SPECT Reason for exam: 68 F with primary hyperparathyroidism Radiopharmaceutical: Tc-99m sestamibi 27 mCi After intravenous administration of the radiopharmaceutical, immediate and 2-hour planar images of the neck and upper chest were obtained. Tomographic images of the neck and upper chest were obtained following the initial planar images. On the initial planar images, a focus of increased tracer is seen in the upper pole of the left thyroid lobe. On the tomographic images, this focus is localized to immediately posterior to the plane of the thyroid. On the delayed planar images, the thyroid washes out adequately and this focus persists. No other focal abnormalities are identified. Impression: Single enlarged hypermetabolic parathyroid gland is identified immediately posterior to the upper pole of the left thyroid lobe. Signed by: Dr. Aysha Calabrese M.D. on 01/11/2019 5:23 AM
== END ==
LOC: NM 11:10
PROVIDERS: ATTEND Internal Medicine Nephrology
DX: E21.0 Primary hyperparathyroidism (principal)
CPT/HCPCS: 78071; A9500

== ENCOUNTER → 2019-04-24 | Outpatient (CLI) | payer OTHER ==
--- NOTE | 2019-04-24 10:39 | Diagnostic Imaging Report ---
Renal ultrasound. Clinical History: Renal neoplasm, post left nephrectomy Comparison Study: 10/03/2018 Findings: The right kidney measures 13.2 cm. There is no evidence of hydronephrosis, nephrolithiasis or renal mass. The echogenicity is normal bilaterally. The cortical thickness is 1.4 cm. Bladder is unremarkable with volume of 105 mL. Right ureteral jet is identified. Impression: Normal right kidney. Signed by: Hector Dubon on 04/24/2019 10:36 AM
== END ==
LOC: US 08:54
PROVIDERS: ATTEND Urology
DX: C64.9 Malignant neoplasm of unspecified kidney, except renal pelvis (principal)
CPT/HCPCS: 76770

== ENCOUNTER → 2019-12-04 | Outpatient (CLI) | payer OTHER, MEDICARE ==
--- NOTE | 2019-12-04 09:38 | Diagnostic Imaging Report ---
EXAM: US RENAL RETROPERITONEAL COMP DATE: 12/04/2019 9:07 AM INDICATION: Renal neoplasm status post left nephrectomy COMPARISON: 04/24/2019 FINDINGS: The right kidney is normal in size measuring 12.4 x 4.7 x 5.4 cm with cortical thickness of 1.7 cm. Cortical echogenicity is within normal limits. There is no evidence for solid renal mass, hydronephrosis, or shadowing calculi. The left kidney is surgically absent. The left renal fossa is grossly unremarkable. The partially distended urinary bladder demonstrates no significant abnormalities. Prevoid volume is 76 cc. A right ureteral jet is visualized. IMPRESSION: Unremarkable sonographic appearance of the right kidney. Status post left nephrectomy. Signed by: Dr. Mick Damico MD on 12/04/2019 9:35 AM
== END ==
LOC: US 08:48
PROVIDERS: ATTEND Urology
DX: N28.1 Cyst of kidney, acquired (principal)
CPT/HCPCS: 76770

== ENCOUNTER → 2019-12-19 | Outpatient (CLI) | payer OTHER, MEDICARE | LOC: NM 12:24 | PROVIDERS: ATTEND Internal Medicine Nephrology | DX: E21.3 Hyperparathyroidism, unspecified (principal); D35.1 Benign neoplasm of parathyroid gland | CPT/HCPCS: 78071; A9500 ==

== ENCOUNTER → 2020-05-28 | Outpatient (CLI) | payer MEDICARE, OTHER | LOC: RAD 08:29 | PROVIDERS: ATTEND Internal Medicine | DX: M17.11 Unilateral primary osteoarthritis, right knee (principal) ==

== ENCOUNTER → 2020-09-04 | Outpatient (CLI) | payer MEDICARE, OTHER | LOC: US 07:38 | PROVIDERS: ATTEND Internal Medicine | DX: R10.9 Unspecified abdominal pain (principal); M48.07 Spinal stenosis, lumbosacral region | CPT/HCPCS: 72110; 76700 ==

== ENCOUNTER → 2020-09-17 | Outpatient (CLI) | payer MEDICARE, OTHER | LOC: MRI 14:23 | PROVIDERS: ATTEND Internal Medicine | DX: M48.07 Spinal stenosis, lumbosacral region (principal) | CPT/HCPCS: 72148 ==

== ENCOUNTER 2020-11-04 07:51 | Outpatient (RCR) | payer MEDICARE, OTHER | END 2020-11-05 | LOC: PT 07:51 | PROVIDERS: ATTEND Neurological Surgery | DX: M48.062 Spinal stenosis, lumbar region with neurogenic claudication (principal); M54.5 Low back pain; M62.81 Muscle weakness (generalized) ==

== ENCOUNTER 2020-11-06 08:09 | Outpatient (RCR) | payer MEDICARE, OTHER | END 2020-12-05 | LOC: PT 08:09 | PROVIDERS: ATTEND Neurological Surgery | DX: M48.062 Spinal stenosis, lumbar region with neurogenic claudication (principal) ==